=== PATIENT | male | born 1995 | race Caucasian/White ===

== ENCOUNTER 2023-11-13 20:43 | Emergency (ER) | payer SELFPAY ==
[~2023-11-13] VITALS: Ht 175.3 cm; Wt 70.3 kg
[2023-11-13 21:03] VITALS: TEMP 98.7
[2023-11-13] MEDS ORDERED: EPIN0.3P3 IM (21:09)
[2023-11-13] MEDS ORDERED: PRED50TA PO (21:09)
[2023-11-13] MEDS ORDERED: diphenhydrAMINE HCL 50 MG/ML VIAL ONE (21:18)
[2023-11-13] MEDS ORDERED: methylPREDNISolone SOD SUCC 125 MG/2ML VIAL ONE (21:18)
[2023-11-13] MEDS ORDERED: FAMOTIDINE/PF INJ 20 MG/2 ML VIAL IV ONE (21:19)
[2023-11-13] MEDS: IV NS 0.9% 1,000 ML BAG IV ONE (21:28)
[2023-11-13] MEDS: methylPREDNISolone SOD SUCC 125 MG/2ML VIAL IV ONE (21:28)
[2023-11-13] MEDS: diphenhydrAMINE HCL 50 MG/ML VIAL IV ONE (21:28)
[2023-11-13] MEDS: FAMOTIDINE/PF INJ 20 MG/2 ML VIAL IV ONE (21:28)
[2023-11-13 23:07] VITALS: BP 124/88; O2SAT 99
== END 2023-11-13 23:07 | disposition home or self-care (01) ==
LOC: ER 20:47
DX: T78.05XA Anaphylactic reaction due to tree nuts and seeds, initial encounter (principal); L29.9 Pruritus, unspecified; R11.0 Nausea; Z91.013 Allergy to seafood; Z91.040 Latex allergy status; Z91.018 Allergy to other foods; Z60.2 Problems related to living alone
CPT/HCPCS: 99284; 96374; 96361; 96375 ×2; J1200; J3490; J2919; J7030